=== PATIENT | male | born 1960 | race Caucasian/White ===

== ENCOUNTER 2021-01-19 07:15 | Day surgery (SDC) | payer OTHER ==
[~2021-01-19 07:15] MED LIST: INDOCIN25 MG; LISINOPRIL5 MG; PROVENTIL S1 ML/5 MG
[2021-01-19] MEDS ORDERED: PROTONIX40 MG PO (10:29)
[2021-01-19] MEDS ORDERED: ULTRACET PO (10:29)
[2021-01-19] MEDS ORDERED: AMOX1TAB5 PO (10:29)
== END 2021-01-19 11:13 | disposition home or self-care (01) ==
LOC: CIR.AMB 07:15
PROVIDERS: ATTEND Surgery
DX: M1A.0221 Idiopathic chronic gout, left elbow, with tophus (tophi) (principal); Z20.822 Contact with and (suspected) exposure to COVID-19

== ENCOUNTER 2022-07-16 11:39 | Outpatient (CLI) | payer OTHER ==
[~2022-07-16 11:39] MED LIST changes: +AMOX1TAB5 PO; +PROTONIX40 MG PO; +ULTRACET PO
== END 2022-07-16 12:00 | disposition home or self-care (01) ==
LOC: RAD 11:39
DX: M47.896 Other spondylosis, lumbar region (principal)